=== PATIENT | male | born 1950 ===

== ENCOUNTER 2017-10-04 06:44 | Day surgery (SDC) | payer OTHER ==
[~2017-10-04] VITALS: Ht 175.3 cm; Wt 93.2 kg
[2017-10-04] VITALS (8 sets, daily range): BP systolic 117–148; BP diastolic 71–101; PULSE 53–71; RESP 16–20; TEMP 97.6; O2SAT 92–95
[2017-10-04] MEDS ORDERED: SIMV40TA PO (07:07)
[2017-10-04] MEDS ORDERED: [UNRECOGNIZED DRUG - OTHER] PO (07:09)
[2017-10-04] MEDS ORDERED: FAMO40TA PO (07:10)
[2017-10-04] MEDS ORDERED: ASPI81CH6 CHEW (07:10)
[2017-10-04] MEDS ORDERED: PROP20TA3 PO (07:11)
[2017-10-04] MEDS ORDERED: FOLI800T PO (07:11)
[2017-10-04] MEDS ORDERED: SODIUM CHLOR 0.9% 1000 ML IV SCH (07:15)
[2017-10-04] MEDS ORDERED: SODIUM CHLORIDE 2 ML FLUSH PRN IV FLUSH (07:15)
[2017-10-04 07:42] LABS: AUTOMATED NEUTROPHIL # 3.4 TH/MM3 (1.8-7.7); BASOPHIL % 0.7 % (0.0-2.0); EOSINOPHIL # 0.5 TH/MM3 (0-0.4); EOSINOPHIL % 9.1 % (0.0-4.0); HEMATOCRIT 39.3 % (39.0-51.0); HEMOGLOBIN 13.1 GM/DL (13.0-17.0); LYMPH % 23.9 % (9.0-44.0); LYMPHOCYTE # 1.4 TH/MM3 (1.0-4.8); MEAN CELL VOLUME 102.6 FL (80.0-100.0); MEAN CORPUSCULAR HEMOGLOBIN 34.3 PG (27.0-34.0); MEAN CORPUSCULAR HGB CONC 33.4 % (32.0-36.0); MEAN PLATELET VOLUME 7.3 FL (7.0-11.0); MONO % 8.7 % (0.0-8.0); MONOCYTE # 0.5 TH/MM3 (0-0.9); NEUT % 57.6 % (16.0-70.0); PLATELET COUNT 112 TH/MM3 (150-450); RED BLOOD COUNT 3.83 MIL/MM3 (4.50-5.90); RED CELL DISTRIBUTION WIDTH 19.3 % (11.6-17.2); WHITE BLOOD COUNT 5.9 TH/MM3 (4.0-11.0)
[2017-10-04 07:54] LABS: INTERNATIONAL NORMALIZED RATIO 1.1 RATIO; PROTHROMBIN TIME - PATIENT 10.9 SEC (9.8-11.6)
[2017-10-04] MEDS ORDERED: MIDAZOLAM HCL 2 MG/2 ML VIAL ONE ×2 (08:14→08:56)
[2017-10-04 08:34] LABS: OVALOCYTES 1+ (NORMAL)
[2017-10-04] MEDS ORDERED: SODIUM CHLORIDE 2 ML FLUSH BID IV FLUSH SCH (09:00)
--- NOTE | 2017-10-04 09:35 | PD.RAD ---
Post CT Procedure Prog Note Pre Procedure Diagnosis: (1) Right lower lobe lung mass Post Procedure Diagnosis: (1) Right lower lobe lung mass Procedure Date: October 04, 2017 Supervising Radiologist: Roberth Eugene Anesthesia: Local, Conscious Sedation Plan of Activity Patient to Unit: [facility]OPU Patient Condition: Good See PACS Report for procedural detail/treatment Biopsy Imaging Guidance: CT Side: Right Biopsy Procedure: Lung Specimen: Core Biopsy, Fine Needle Aspirate Roberth Eugene MD October 04, 2017 09:35
[2017-10-04] MEDS ORDERED: oxyCODONE/ACETAMINOPHEN 5 MG/325 MG TAB PO PRN (09:45)
--- NOTE | 2017-10-04 10:21 | RADRPT ---
EXAM DATE: 10/04/2017 10:05 AM EDT AGE/SEX: 67 years / Male INDICATIONS: Pneumothorax. S/P right lung biopsy. CLINICAL DATA: This is the patient's initial encounter. Patient reports that signs and symptoms have been present for 1 day and indicates a pain score of 0/10. MEDICAL/SURGICAL HISTORY: None. None. COMPARISON: No prior [facility] exams available for comparison. FINDINGS: A single frontal expiratory view of the chest was performed. The lungs are symmetrically aerated and clear. No evidence of pneumothorax. The small postbiopsy pneumothorax identified on CT is not radio graphically apparent. Mediastinal structures are in the midline. CONCLUSION: Small postbiopsy pneumothorax identified on CT is not radiographically apparent; follow-up radiograph will be obtained. Electronically signed by: Roberth Eugene MD 10/04/2017 10:20 AM EDT
--- NOTE | 2017-10-04 12:39 | RADRPT ---
EXAM DATE: 10/04/2017 12:33 PM EDT AGE/SEX: 67 years / Male INDICATIONS: Pneumothorax. Post bx. CLINICAL DATA: This is the patient's initial encounter. Patient reports that signs and symptoms have been present for 1 day and indicates a pain score of 0/10. MEDICAL/SURGICAL HISTORY: . blood clot in chest, 2 stents 2008 None. COMPARISON: [facility] – [place], CHEST EXPIRATION ONLY, 10/04/2017. . FINDINGS: Suspect a very small right apical pneumothorax. Biopsied mass in the right lung base is not well demo nstrated. Minimal airspace disease at the left lung base likely reflects atelectasis. Cardiomediastin al contours are within normal limits. Remainder of exam is unchanged. CONCLUSION: 1. Trace right apical pneumothorax. Electronically signed by: Dex Vegas MD 10/04/2017 12:38 PM EDT
--- NOTE | 2017-10-04 14:12 | RADRPT ---
EXAM DATE: 10/04/2017 1:28 PM EDT AGE/SEX: 67 years / Male INDICATIONS: Right lower lobe mass. CLINICAL DATA: This is the patient's initial encounter. Patient reports that signs and symptoms have been present for 1 day and indicates a pain score of 0/10. MEDICAL/SURGICAL HISTORY: Hypertension. Renal calculi. None. None COMPARISON: [facility] [place], 10/04/2017. . SEDATION TIME (min): 45 BIOPSY SITE: Right lung MEDICATION(S): 2.5 mg midazolam (Versed) IV 150 mcg fentanyl (Sublimaze) IV DEVICE(S): 20 gauge . BARD Two . . PROCEDURE: CT guided Right lung biopsy Conscious sedation with continuous EKG and oximetry monitoring. Prior to the procedure informed consent was obtained. Any appropriate prior imaging studies were rev iewed. Using automated exposure control and adjustment of the mA and/or kV according to patient size , radiation dose was kept as low as reasonably achievable to obtain optimal diagnostic quality images . DICOM format image data is available electronically for review and comparison. The site was prepped in a sterile fashion. Full sterile technique was used, including cap, mask, yolanda rile gloves and gown and a large sterile sheet. Hand hygiene and 2% chlorhexidine and/or betadine/al cohol prep was utilized per protocol for cutaneous antisepsis. The skin and subcutaneous tissues wer e infiltrated with local anesthetic solution. With CT guidance the previously identified target was localized. Biopsy was performed using the presc ribed needle as above. Adequate hemostasis was obtained with compression at the puncture site. Follow-up CT scan reveals a very small pneumothorax adjacent to biopsy site.. Conscious sedation was performed with the prescribed dosages and duration as above in the presence of an independent trained radiology nurse to assist in the monitoring of the patient. EKG and oximetry remained stable throughout the procedure. The patient tolerated the procedure well and there were no complications. The patient was sent to Radiology Outpatient Unit in stable condition. CONCLUSION: CT biopsy right lung mass completed Very small pneumothorax adjacent the biopsy site. Electronically signed by: Roberth Eugene MD 10/04/2017 2:11 PM EDT
[2017-10-06] MEDS ORDERED: RAMI2.5C PO (11:00)
== END 2017-10-04 13:35 | disposition home or self-care (01) ==
LOC: HRAD 06:44 → HRIP 06:45 → HRAD 13:35
PROVIDERS: ATTEND Internal Medicine Hematology & Oncology
DX: R91.8 Other nonspecific abnormal finding of lung field (principal); J93.9 Pneumothorax, unspecified; I10 Essential (primary) hypertension; Z87.442 Personal history of urinary calculi; Z79.899 Other long term (current) drug therapy; Z79.82 Long term (current) use of aspirin
CPT/HCPCS: 32405; 71045; 77012; 85025; 85610; 85730; 88305; 88333; 88341; 88342; 99152; 99153; J2250; J3010; 88312